=== PATIENT | female | born 1945 | race Caucasian/White ===

== ENCOUNTER 2025-01-16 05:57 | Day surgery (SDC) | payer BC ==
[2025-01-15 12:29] LABS: LYMPHOCYTES # (AUTO) 1.6 X10'3 (1.1-4.8); MEAN CORPUSCULAR HEMOGLOBIN 28.7 PG (27.0-31.0); MEAN PLATELET VOLUME 8.9 FL (7.4-10.4); MONOCYTES # (AUTO) 0.5 X10'3 (0-0.9); RED BLOOD COUNT 4.37 X10'6 (4.20-5.60)
[2025-01-15 12:30] LABS: BASOPHILS # (AUTO) 0.1 X10'3 (0-0.2); BASOPHILS % (AUTO) 1.3 % (0-1); EOSINOPHILS # (AUTO) 0.2 X10'3 (0-0.9); EOSINOPHILS % (AUTO) 2.1 % (0-6); HEMATOCRIT 38.3 % (35.0-45.0); HEMOGLOBIN 12.5 g/dl (12.0-16.0); LYMPHOCYTES % (AUTO) 20.8 % (21-51); MEAN CORPUSCULAR HGB CONC 32.8 g/dL (33.0-36.5); MEAN CORPUSCULAR VOLUME 87.7 FL (78-98); MONOCYTES % (AUTO) 7.2 % (2-12); NEUTROPHILS # (AUTO) 5.2 X10'3 (1.8-7.7); NEUTROPHILS % (AUTO) 68.6 % (42-75); PLATELET COUNT 342 X10'3 (140-440); RED CELL DISTRIBUTION WIDTH 15.4 % (11.5-14.5); WHITE BLOOD COUNT 7.6 X10'3 (4.5-11.0)
[2025-01-15 12:49] LABS: APTT 24 SECONDS (22-32); PROTHROMBIN TIME 10.3 SECONDS (9.0-12.0)
[2025-01-15 12:55] LABS: ALBUMIN 3.7 G/DL (3.4-5.0); ANION GAP 8 (8-16); BLOOD UREA NITROGEN 22 MG/DL (7-18); BUN/CREATININE RATIO 15.7 (10.0-20.0); CALCIUM 9.1 MG/DL (8.5-10.1); CHLORIDE 106 MMOL/L (99-107); GLUCOSE 117 MG/DL (70-104); POTASSIUM 3.6 MMOL/L (3.5-5.1); SODIUM 141 MMOL/L (135-145); TOTAL CARBON DIOXIDE 27.1 MMOL/L (24-32); eGFR 36 ML/MIN
[~2025-01-16] VITALS: Ht 157.5 cm; Wt 71.0 kg
[2025-01-16] VITALS (13 sets, daily range): BP systolic 119–157; BP diastolic 52–82; PULSE 58–78; RESP 12–18; TEMP 98.2; O2SAT 94–100
--- NOTE | 2025-01-16 06:29 | ELECTROCARDIOGRAPH REPORT ---
[facility] Test Date: 2025-01-16 Test Time: 06:27:11 Pat Name: BRENDAN VICKERS Department: [facility] Patient ID: [facility]-[id number] Room: Gender: F Ad Clerk: TATIANA : 1945 Requested By: BRANDON MANDEL Order Number: [id number] Reading MD: Dr. Rosario Peña Measurements Intervals [place] Rate: 69 P: -22 OK: 276 QRS: 15 QRSD: 95 T: 116 QT: 416 QTc: 446 Interpretive Statements Sinus rhythm Prolonged OK interval Abnormal R-wave progression, early transition Repol abnrm suggests ischemia, anterolateral Electronically Signed On 01-16-2025 7:03:[address] Rosario Peña Please click the below link to view image of tracing.
[2025-01-16] MEDS ORDERED: CLOP75TA34 PO (06:30)
[2025-01-16] MEDS ORDERED: FENO145T25 PO (06:30)
[2025-01-16] MEDS ORDERED: EMPA25TA PO (06:30)
[2025-01-16] MEDS ORDERED: ROSU40TA89 PO (06:30)
[2025-01-16] MEDS ORDERED: RAMI10CA78 PO (06:30)
[2025-01-16] MEDS ORDERED: METO-384 PO (06:30)
[2025-01-16] MEDS ORDERED: ZOLP5TAB8 PO (06:30)
[2025-01-16] MEDS ORDERED: TRIA1CAP88 PO (06:33)
[2025-01-16] MEDS ORDERED: ALEN70TA60 PO (06:33)
[2025-01-16] MEDS: diphenhydrAMINE 25mg capsule PO PRN (07:17)
[2025-01-16] MEDS ORDERED: verapamil 2.5 mg/ml inj IV ONE (07:17)
[2025-01-16] MEDS ORDERED: LIDOcaine 1% (10mg/ml) 2ml vial ONE (07:17)
[2025-01-16] MEDS: sodium bicarbonate 1meq/ml syr 150 ML in dextrose 5%-water 1,000 ML IV ONE (07:17)
[2025-01-16] MEDS ORDERED: fentaNYL/PF 50MCG/1 ML 2ML syringe ONE (07:17)
[2025-01-16] MEDS: LORazepam 0.5 MG tablet PO PRN (07:17)
[2025-01-16] MEDS ORDERED: heparin 1,000unit/ml 10ml vial 10 ML ONE (07:17)
[2025-01-16] MEDS ORDERED: iohexol 350 MG/ML 50ML vial IV ONE ×2 (07:17→08:37)
[2025-01-16] MEDS ORDERED: midazolam 1 mg/ML 2ml injection ONE (07:17)
[2025-01-16] MEDS ORDERED: iohexol 350MG/ML 100ml bottle IV ONE (07:18)
[2025-01-16] MEDS ORDERED: nitroGLYCERIN 500mcg/5mL D5W 5 ML IV ONE (07:20)
[2025-01-16] MEDS: normal saline 1,000 ML IV SCH (07:20)
[2025-01-16] MEDS: acetylcysteine 200 MG/ml 4ml vial PO PRN (07:20)
[2025-01-16] MEDS ORDERED: normal saline 1000ml 1,000 ML IV SCH (09:20)
[2025-01-16] MEDS ORDERED: proCHLORperazine 10 MG/2 ml inj IV PRN (09:25)
[2025-01-16] MEDS ORDERED: HYDROcodone/acetaminophen 5mg/325mg tablet PO PRN (09:25)
[2025-01-16] MEDS ORDERED: OXAZEpam 15mg capsule PO PRN (09:25)
[2025-01-16] MEDS ORDERED: HYDROcodone/acetaminophen 10/325mg tab PO PRN (09:25)
--- NOTE | 2025-01-16 10:56 | CARDIOLOGY REPORT ---
DATE OF SERVICE: 01/16/2025 DICTATING PHYSICIAN: JACEY El MD CARDIAC CATHETERIZATION GENDER: Female. AGE: 79 years. HEIGHT: 157 cm. WEIGHT: 71 kg. BODY SURFACE AREA: 1.72 m2. INDICATION: The patient is a 79-year-old postmenopausal female with history of hypertension, hyperlipidemia, CAD, coronary artery stenting, prediabetes, and sick sinus syndrome. History of CAD dates back to 06/29/2009 when she had a PTCA stenting of the proximal RCA with a 3.5/18 Promus stent at [facility] ? . Since then, the patient has done well lately. Myocardial perfusion scan on 12/04/2024 showed mid-distal anterolateral reversible defect. After discussing risks, benefits and alternative options, the patient prefers to proceed with definitive evaluation of coronary angiography in view of her tiredness and fatigue. Risks, benefits, and alternative options discussed. Informed consent obtained. PROCEDURE TECHNIQUE: The patient underwent left heart catheterization, right radial approach, 6-[place] right radial sheath. Post-procedure access site hemostasis secured with right radial band. The patient tolerated the procedure well. COMPLICATIONS: None. PROCEDURES DONE: * Ultrasound-guided right radial artery visualization access. * Left heart catheterization. * LVG. * Coronary angiography. * Conscious sedation time of 45 minutes. FINDINGS: HEMODYNAMICS: Aortic systolic 117, diastolic 50, mean 76 mmHg. LVEDP of 14 mmHg. There is no significant gradient across the aortic valve. LEFT VENTRICULOGRAM: Overall left ventricular systolic function normal with an LV ejection fraction of 65% to 70%. CORONARY CINEANGIOGRAPHY: Left main coronary artery is a large caliber vessel arising from left aortic sinus and has distal 30% narrowing. LAD is a medium caliber vessel arising at the bifurcation of the left main coronary artery, courses through the anterior intraventricular groove and ends by wrapping around the apex. LAD has a [id number] diffuse disease with areas of 30% narrowing in the mid distal portion. Diagonal is 2.5 mm caliber vessel with the areas of 30% narrowing. Circumflex artery is a medium caliber vessel arising at the bifurcation of the left main coronary artery, courses through the left AV groove with mild luminal areas of 30% narrowing. OM1 is 2.5 mm caliber with minimal luminal irregularities. OM2 is 2.5 mm caliber, divided into 2 divisions with mild luminal irregularities. After that circumflex artery continues in the left AV groove. The right coronary artery is a medium-caliber vessel arising from the right aortic sinus and courses through the right AV groove and ends at the posterior crux by dividing into PDA and posterolateral, stent in the mid RCA is widely patent. There is areas of 30% narrowing in the proximal and distal RCA. RCA ostium shows about 40% narrowing. It was engaged with 5-[place] GARCIA catheter for better visualization. IMPRESSION: A 79-year-old female with LV ejection fraction of 65% to 70%. LVEDP of 14 mmHg with no gradient across the aortic valve. Left main distal 30% narrowing. LAD areas of 30% narrowing in the mid distal portion. Diagonal 30% narrowing. Circumflex artery with areas of 30% narrowing. Dominant RCA with ostial 40% narrowing. Mid RCA stent patent. RECOMMENDATIONS: Recommend continued aggressive coronary risk factor modification, namely low-fat, low-cholesterol diet, maintaining ideal body weight, keeping LDL less than 70 mg, regular exercise program. JACEY El MD TID: [id number] RECEIPT: [id number] PRESLEY/JAVIER/KELLY cc: Yudith Granados MD MTDBrando
== END 2025-01-16 14:00 | disposition home or self-care (01) ==
LOC: SSTAY O 05:57
PROVIDERS: ATTEND Internal Medicine Cardiovascular Disease
DX: R94.39 Abnormal result of other cardiovascular function study (principal); I25.10 Atherosclerotic heart disease of native coronary artery without angina pectoris; I49.5 Sick sinus syndrome; I10 Essential (primary) hypertension; E78.5 Hyperlipidemia, unspecified; Z95.5 Presence of coronary angioplasty implant and graft; Z79.899 Other long term (current) drug therapy; Z98.890 Other specified postprocedural states; Z79.01 Long term (current) use of anticoagulants
CPT/HCPCS: 36415; 80048; 85025; 85610; 85730; 93005; 93458; 99152; 99153; J1644; J2003; J2250; J3010; J3490; J7030; J7070; Q0163; Q9967; A6258; A6402; C1725; C1894